=== PATIENT | female | born 1940 | race Caucasian/White ===

== ENCOUNTER → 2017-06-15 14:24 | Outpatient (CLI) | payer MEDICARE, OTHER ==
[2010-03-14 07:01] VITALS: BMI 25.6
== END | disposition home or self-care (01) ==
LOC: D.MAMMO 10:00
DX: Z85.3 Personal history of malignant neoplasm of breast (principal)

== ENCOUNTER 2019-02-15 08:00 | Outpatient (CLI) | payer MEDICARE, OTHER ==
[2010-03-14 07:01] VITALS: BMI 25.6
== END 2019-02-15 23:59 | disposition home or self-care (01) ==
LOC: D.MAMMO 08:00
PROVIDERS: ATTEND Family Medicine
DX: Z85.3 Personal history of malignant neoplasm of breast (principal)

== ENCOUNTER 2020-08-07 11:30 | Outpatient (CLI) | payer MEDICARE, OTHER ==
[2010-03-14 07:01] VITALS: BMI 25.6
== END 2020-08-07 12:30 | disposition home or self-care (01) ==
LOC: D.MAMMO 11:30
PROVIDERS: ATTEND Family Medicine
DX: Z12.31 Encounter for screening mammogram for malignant neoplasm of breast (principal); Z85.3 Personal history of malignant neoplasm of breast